=== PATIENT | female | born 1980 | race African-American/Black ===

== ENCOUNTER 2018-11-03 11:31 | Inpatient (IN) | payer MEDICAID, OTHER ==
[2018-11-03] MEDS: LACTATED RINGER'S 1,000 ML IV ×2 (12:01→20:54)
[2018-11-03] MEDS: MAGNESIUM SULFATE 4 GM/100 ML 100 ML IV (12:10)
[2018-11-03] MEDS: BETAMET NA PHOS/AC(6 MG/ML) 2 ML INJ SYG IM (12:18)
[2018-11-03] MEDS: MAGNESIUM SULFATE 20 GM/500 ML 500 ML IV (12:41)
[2018-11-03 13:30] LABS: ADD MAN DIFF? NO
[2018-11-03] MEDS ORDERED: BUTORPHANOL 1 MG INJ IV (13:30)
[2018-11-03 13:31] LABS: BASOPHIL # 0.1 10^3/ul (0.0-0.1); BASOPHILS % 0.4 % (0.0-2.0); EOSINOPHILS % 0.1 % (0.0-7.0); HEMATOCRIT 33.8 % (37.0-47.0); HEMOGLOBIN 11.6 g/dl (12.0-16.0); LYMPHOCYTES # 2.8 10^3/ul (0.8-2.9); LYMPHOCYTES % 20.1 % (15.0-51.0); MEAN CORPUSCULAR HEMOGLOBIN 29.9 pg (29.0-33.0); MEAN CORPUSCULAR HGB CONC 34.3 g/dl (32.0-37.0); MEAN CORPUSCULAR VOLUME 87.1 fl (82.0-101.0); MEAN PLATELET VOLUME 11.8 fl (7.4-10.4); MONOCYTES % 7.2 % (0.0-11.0); NEUTROPHIL # 10.1 10^3/ul (1.6-7.5); NEUTROPHILS % 71.6 % (39.0-77.0); PLATELET COUNT 262 10^3/UL (140-415); RED BLOOD COUNT 3.88 10^6/ul (4.20-5.40); RED CELL DISTRIBUTION WIDTH 13.5 % (11.5-14.5)
[2018-11-03 13:31] LABS: WHITE BLOOD COUNT 14.1 10^3/ul (4.8-10.8)
[2018-11-03 13:35] LABS: INR 0.86; PROTIME 11.8 Sec (11.9-14.9); PT RATIO 0.9
[2018-11-03 13:43] LABS: ALANINE AMINOTRANSFERASE 12 IU/L (13-69); ALBUMIN 2.9 g/dl (3.3-4.9); ALBUMIN/GLOBULIN RATIO 0.85; ALKALINE PHOSPHATASE 136 IU/L (42-121); ANION GAP 9 (5-13); ASPARTATE AMINO TRANSFERASE 15 IU/L (15-46); BILIRUBIN,INDIRECT 0.3 mg/dl (0-1.1); BILIRUBIN,TOTAL 0.3 mg/dl (0.2-1.3); BLOOD UREA NITROGEN 3 mg/dl (7-20); CALCIUM 9.1 mg/dl (8.4-10.2); CARBON DIOXIDE 19 mmol/L (21-31); CHLORIDE 109 mmol/L (97-110); CREATININE 0.53 mg/dl (0.44-1.00); Estimated GFR > 60 mL/min (>60); GLUCOSE 75 mg/dl (70-220); SODIUM 137 mmol/L (135-144); TOTAL PROTEIN 6.3 g/dl (6.1-8.1)
[2018-11-03] MEDS: BUTORPHANOL 2 MG INJ IV ×2 (14:11→19:03)
[2018-11-03] MEDS ORDERED: GLUCOSE GEL 15 GRAM TUBE PO ×2 (14:30)
[2018-11-03] MEDS ORDERED: GLUCAGON 1 MG INJ IM (14:30)
[2018-11-03] MEDS ORDERED: DEXTROSE 50% 50 ML SYRINGE IV ×2 (14:30)
[2018-11-03] MEDS ORDERED: GLUCOSE GEL 15 GRAM TUBE BUCCAL (14:30)
[2018-11-03] MEDS: AMPICILLIN 2 GM/NS (PMX) 100 ML IV (15:20)
[2018-11-03 16:24] LABS: ADD UMIC YES; UR ASCORBIC ACID NEGATIVE (NEGATIVE); UR BACTERIA FEW /HPF (NONE SEEN); UR BILIRUBIN (Dip) NEGATIVE (NEGATIVE); UR BLOOD (Dip) 3+ mg/dL (NEGATIVE); UR CLARITY CLEAR (CLEAR); UR COLOR YELLOW (YELLOW); UR GLUCOSE (Dip) NEGATIVE (NEGATIVE); UR KETONES (Dip) 2+ mg/dL (NEGATIVE); UR LEUKOCYTE ESTERASE (Dip) 1+ Leu/ul (NEGATIVE); UR NITRITE (Dip) NEGATIVE (NEGATIVE); UR RBC 70 /HPF (0-5); UR SPECIFIC GRAVITY (Dip) 1.012 (1.003-1.030); UR SQUAMOUS EPITHELIAL CELL FEW /HPF (FEW); UR TOTAL PROTEIN (Dip) NEGATIVE (NEGATIVE); UR UROBILINOGEN (Dip) NEGATIVE (NEGATIVE); UR WBC 35 /HPF (0-5)
[2018-11-03] MEDS: ACETAMINOPHEN 325 MG TAB PO (16:37)
[2018-11-03 16:40] LABS: AMPHETAMINE/METHAMPHETAMINE Negative (NEGATIVE); BARBITURATES Negative (NEGATIVE); BENZODIAZEPINES Negative (NEGATIVE); CANNABINOIDS Negative (NEGATIVE); COCAINE Negative (NEGATIVE); OPIATES Negative (NEGATIVE)
[2018-11-03] MEDS ORDERED: LACTATED RINGER'S 1,000 ML IV (16:54)
[2018-11-03] MEDS ORDERED: ACCU-CHEK XX (17:00)
[2018-11-03 18:02] LABS: ADD UMIC YES; UR ASCORBIC ACID NEGATIVE (NEGATIVE); UR BILIRUBIN (Dip) NEGATIVE (NEGATIVE); UR BLOOD (Dip) 2+ mg/dL (NEGATIVE); UR CLARITY SLIGHTLY CLOUDY (CLEAR); UR COLOR YELLOW (YELLOW); UR GLUCOSE (Dip) NEGATIVE (NEGATIVE); UR KETONES (Dip) 2+ mg/dL (NEGATIVE); UR LEUKOCYTE ESTERASE (Dip) TRACE Leu/ul (NEGATIVE); UR NITRITE (Dip) NEGATIVE (NEGATIVE); UR RBC 20 /HPF (0-5); UR SPECIFIC GRAVITY (Dip) 1.012 (1.003-1.030); UR SQUAMOUS EPITHELIAL CELL FEW /HPF (FEW); UR TOTAL PROTEIN (Dip) NEGATIVE (NEGATIVE); UR UROBILINOGEN (Dip) NEGATIVE (NEGATIVE); UR WBC 14 /HPF (0-5)
[2018-11-03 18:46] LABS: MAGNESIUM 4.9 mg/dl (1.7-2.5)
[2018-11-03] MEDS: DEXTROSE 5%-LR 1,000 ML IV (19:11)
[2018-11-03] MEDS: AMPICILLIN 1 GM/NS (PMX) 50 ML IV (20:06)
[2018-11-03] MEDS ORDERED: NALOXONE (0.4 MG/ML) INJ IV (20:30)
[2018-11-03] MEDS ORDERED: HYDROmorphONE 0.5 MG/0.5 ML SYG IV ×2 (20:30)
[2018-11-03] MEDS ORDERED: DIPHENHYDRAMINE 50 MG INJ IV (20:30)
[2018-11-03] MEDS ORDERED: ZOLPIDEM 5 MG TAB PO (20:30)
[2018-11-03] MEDS ORDERED: ONDANSETRON 4 MG INJ IV (20:30)
[2018-11-03 22:17] LABS: RAPID PLASMA REAGIN NONREACTIVE (NR)
[2018-11-03] MEDS: FENTAnyl 2MCG/ML-ROPIV 0.2% 100 ML BAG EPI (23:51)
[2018-11-04] MEDS: AMPICILLIN 1 GM/NS (PMX) 50 ML IV ×6 (00:26→20:33)
[2018-11-04] MEDS: BETAMET NA PHOS/AC(6 MG/ML) 2 ML INJ SYG IM (00:26)
[2018-11-04] MEDS: FENTAnyl 2MCG/ML-ROPIV 0.2% 100 ML BAG EPI ×3 (04:10→19:32)
[2018-11-04] MEDS: ACCU-CHEK XX ×4 (06:00→19:35)
[2018-11-04] MEDS: LACTATED RINGER'S 1,000 ML IV (06:30)
[2018-11-04] MEDS ORDERED: BETAMET NA PHOS/AC(6 MG/ML) 2 ML INJ SYG IM (09:00)
[2018-11-04] MEDS: DEXTROSE 5%-LR 1,000 ML IV (11:30)
[2018-11-04] MEDS: AZITHROMYCIN 500MG/NS (PMX) 250 ML IVPB (14:12)
[2018-11-04] MEDS: MAGNESIUM SULFATE 20 GM/500 ML 500 ML IV (18:12)
[2018-11-04] MEDS ORDERED: OXYTOCIN 30 UNITS/LR 500 ML IV (20:00)
[2018-11-04] MEDS ORDERED: LIDOCAINE 1% (MPF) 30 ML INJ INJ (21:00)
[2018-11-04 22:27] LABS: CBV Base Excess -11.2 mmol/L; CBV COHb 1.2 %; CBV Oxygen Sat 78.2 mmHG; CBV Total Hemglobin 15.9 g/dl; Cord Blood Venous pO2 34.2 mmHG (15.0-45.0); Fraction OxyHgb Cord Venous 76.6 %; MODE ROOM AIR; MetHgb Cord Venous 0.9 %; Sample Type CBV; Site CORD
[2018-11-04 22:28] LABS: AADO2 Cord Arterial 68.2 mmHg; Arterial Cord Blood pCO2 51.5 mmHG (25-50); CBA Base Excess -12.1 mmol/L; CBA COHb 0.6 %; CBA Oxygen Sat 41.5 mmHG; CBA Total Hemglobin 15.6 g/dl; Cord Blood Arterial pO2 19.9 mmHG (15.0-45.0); Fraction OxyHgb Cord Arterial 40.5 %; MODE ROOM AIR; MetHgb Cord Arterial 1.7 %; Sample Type CBA; Site CORD
[2018-11-04] MEDS: OXYTOCIN 30 UNITS/LR 500 ML IV ×2 (22:29→22:30)
[2018-11-04] MEDS: MINERAL OIL LIGHT 10 ML VIAL TOP (22:31)
[2018-11-04] MEDS: KETOROLAC 30 MG INJ IV (22:43)
[2018-11-05] MEDS: MAGNESIUM SULFATE 4 GM/100 ML 100 ML IV (00:39)
[2018-11-05] MEDS: MAGNESIUM SULFATE 20 GM/500 ML 500 ML IV ×2 (01:07→11:50)
[2018-11-05 01:10] LABS: ADD MAN DIFF? NO
[2018-11-05 01:11] LABS: WHITE BLOOD COUNT 22.6 10^3/ul (4.8-10.8)
[2018-11-05 01:11] LABS: ABNORMAL IP MESSAGE 1; BASOPHIL # 0.1 10^3/ul (0.0-0.1); BASOPHILS % 0.3 % (0.0-2.0); HEMOGLOBIN 10.2 g/dl (12.0-16.0); LYMPHOCYTES # 1.7 10^3/ul (0.8-2.9); LYMPHOCYTES % 7.3 % (15.0-51.0); MEAN CORPUSCULAR HGB CONC 32.9 g/dl (32.0-37.0); MEAN CORPUSCULAR VOLUME 91.2 fl (82.0-101.0); MEAN PLATELET VOLUME 10.8 fl (7.4-10.4); MONOCYTES % 8.9 % (0.0-11.0); NEUTROPHIL # 18.6 10^3/ul (1.6-7.5); PLATELET COUNT 244 10^3/UL (140-415)
[2018-11-05 01:20] LABS: POSITIVE DIFF @See below
[2018-11-05 01:29] LABS: ALANINE AMINOTRANSFERASE 10 IU/L (13-69); ALBUMIN 2.7 g/dl (3.3-4.9); ALBUMIN/GLOBULIN RATIO 0.81; ALKALINE PHOSPHATASE 116 IU/L (42-121); ANION GAP 14 (5-13); ASPARTATE AMINO TRANSFERASE 20 IU/L (15-46); BILIRUBIN,INDIRECT 0.2 mg/dl (0-1.1); BILIRUBIN,TOTAL 0.2 mg/dl (0.2-1.3); BLOOD UREA NITROGEN 8 mg/dl (7-20); CALCIUM 8.8 mg/dl (8.4-10.2); CARBON DIOXIDE 19 mmol/L (21-31); CHLORIDE 102 mmol/L (97-110); CREATININE 0.79 mg/dl (0.44-1.00); Estimated GFR > 60 mL/min (>60); GLUCOSE 124 mg/dl (70-220); POTASSIUM 4.2 mmol/L (3.5-5.1); SODIUM 135 mmol/L (135-144); URIC ACID 7.4 mg/dl (3.1-7.9)
[2018-11-05] MEDS: LACTATED RINGER'S 1,000 ML IV* ×3 (02:17→17:35)
[2018-11-05] MEDS ORDERED: SENNA/DOCUSATE NA (8.6MG/50MG) TAB PO (02:30)
[2018-11-05] MEDS ORDERED: CARBOPROST 250 MCG INJ IM (02:30)
[2018-11-05] MEDS ORDERED: MAGNESIUM HYDROXIDE 30ML CUP PO (02:30)
[2018-11-05] MEDS ORDERED: ONDANSETRON 4 MG INJ IV (02:30)
[2018-11-05] MEDS ORDERED: NA PHOSPHATE/BIPHOS 133 ML ENEMA PR (02:30)
[2018-11-05] MEDS ORDERED: DIPHENHYDRAMINE 50 MG INJ IV (02:30)
[2018-11-05] MEDS ORDERED: ONDANSETRON 4 MG TAB PO (02:30)
[2018-11-05] MEDS ORDERED: HYDROCODONE/APAP (5/325) TAB PO (02:30)
[2018-11-05] MEDS ORDERED: DIPHENHYDRAMINE 25 MG CAP PO (02:30)
[2018-11-05] MEDS ORDERED: OXYTOCIN 30 UNITS/LR 500 ML IV (02:30)
[2018-11-05] MEDS ORDERED: MISOPROSTOL 200 MCG TAB PR (02:30)
[2018-11-05] MEDS: WITCH HAZEL/GLYCERIN PAD PR (05:47)
[2018-11-05] MEDS: BENZOCAINE 20% 56 ML SPRAY TOP (05:47)
[2018-11-05] MEDS: IBUPROFEN 600 MG TAB PO ×4 (05:47→23:34)
[2018-11-05] MEDS: ACCU-CHEK XX ×4 (07:30→19:05)
[2018-11-05 08:38] LABS: ADD MAN DIFF? NO
[2018-11-05 08:44] LABS: WHITE BLOOD COUNT 20.1 10^3/ul (4.8-10.8)
[2018-11-05 08:44] LABS: ABNORMAL IP MESSAGE 1; BASOPHILS % 0.1 % (0.0-2.0); HEMATOCRIT 30.3 % (37.0-47.0); HEMOGLOBIN 9.9 g/dl (12.0-16.0); LYMPHOCYTES % 9.7 % (15.0-51.0); MEAN CORPUSCULAR HEMOGLOBIN 29.3 pg (29.0-33.0); MEAN CORPUSCULAR HGB CONC 32.7 g/dl (32.0-37.0); MEAN CORPUSCULAR VOLUME 89.6 fl (82.0-101.0); MEAN PLATELET VOLUME 11.2 fl (7.4-10.4); MONOCYTE # 2.3 10^3/ul (0.3-0.9); MONOCYTES % 11.2 % (0.0-11.0); NEUTROPHIL # 15.7 10^3/ul (1.6-7.5); PLATELET COUNT 234 10^3/UL (140-415); RED BLOOD COUNT 3.38 10^6/ul (4.20-5.40); RED CELL DISTRIBUTION WIDTH 14.1 % (11.5-14.5)
[2018-11-05 08:47] LABS: POSITIVE DIFF @See below
[2018-11-05] MEDS: SENNA/DOCUSATE NA (8.6MG/50MG) TAB PO ×2 (09:02→21:02)
[2018-11-05 09:30] LABS: MAGNESIUM 5.9 mg/dl (1.7-2.5)
[2018-11-05 12:40] LABS: MAGNESIUM 5.7 mg/dl (1.7-2.5)
[2018-11-05 12:47] LABS: ADD UMIC YES; UR ASCORBIC ACID NEGATIVE (NEGATIVE); UR BACTERIA FEW /HPF (NONE SEEN); UR BILIRUBIN (Dip) NEGATIVE (NEGATIVE); UR BLOOD (Dip) 3+ mg/dL (NEGATIVE); UR CLARITY CLEAR (CLEAR); UR COLOR YELLOW (YELLOW); UR GLUCOSE (Dip) NEGATIVE (NEGATIVE); UR KETONES (Dip) TRACE mg/dL (NEGATIVE); UR LEUKOCYTE ESTERASE (Dip) 1+ Leu/ul (NEGATIVE); UR NITRITE (Dip) NEGATIVE (NEGATIVE); UR RBC 168 /HPF (0-5); UR SPECIFIC GRAVITY (Dip) 1.011 (1.003-1.030); UR TOTAL PROTEIN (Dip) NEGATIVE (NEGATIVE); UR UROBILINOGEN (Dip) NEGATIVE (NEGATIVE); UR WBC 24 /HPF (0-5)
[2018-11-05 19:26] LABS: MAGNESIUM 6.2 mg/dl (1.7-2.5)
[2018-11-05] MEDS: HYDROCODONE/APAP (5/325) TAB PO (21:03)
[2018-11-06] MEDS: IBUPROFEN 600 MG TAB PO ×3 (05:13→17:42)
[2018-11-06] MEDS: SENNA/DOCUSATE NA (8.6MG/50MG) TAB PO (08:52)
[2018-11-06] MEDS: HYDROCODONE/APAP (5/325) TAB PO (08:53)
[2018-11-06] MEDS: VARICELLA VACCINE LIVE/PF 1,350 UNIT/0.5 ML ML SC* (09:00)
[2018-11-06] MEDS: MEASLES,MUMPS,RUBELLA VACCINE INJ SC* (09:00)
[2018-11-06] MEDS: DIPHTH/TET/ACEL PERTUSS (ADULT) 0.5 ML VIAL IM* (09:00)
[2018-11-06] MEDS: LANOLIN HPA 1 PKT TOP (17:41)
[2018-11-06] MEDS: DIBUCAINE 1% 30 GM OINT TOP (17:41)
[2018-11-06] MEDS: BENZOCAINE 20% 56 ML SPRAY TOP (17:41)
[2018-11-06] MEDS: WITCH HAZEL/GLYCERIN PAD PR (17:41)
== END 2018-11-06 19:09 | disposition home or self-care (01) | DRG 805 ==
LOC: OBT 11:31 → L-D 11-04 09:17 → PP1 11-05 01:56 → L-D 11-04 14:51 → OBT 11:33 → L-D 11:33
PROC: 10E0XZZ Delivery of Products of Conception, External Approach (ICD-10-PCS; principal; 2018-11-04)
PROC: 0HQ9XZZ Repair Perineum Skin, External Approach (ICD-10-PCS; 2018-11-04)
DX: O24.420 Gestational diabetes mellitus in childbirth, diet controlled (principal); O60.14X0 Preterm labor third trimester with preterm delivery third trimester, not applicable or unspecified; Z37.0 Single live birth; O69.81X0 Labor and delivery complicated by cord around neck, without compression, not applicable or unspecified; O70.0 First degree perineal laceration during delivery; Z3A.33 33 weeks gestation of pregnancy
CPT/HCPCS: 36415; 36600; 62319; 76815; 76817; 76818; 80053; 80307; 81001; 82803; 82962; 83735; 84560; 85025; 85610; 85730; 86592; 86900; 86901; 87086; 88307; 90716; 99464

== ENCOUNTER 2018-11-08 02:13 | Inpatient (IN) | payer SELFPAY, MEDICAID ==
[2018-11-08] MEDS: FUROSEMIDE 40 MG INJ IV ×2 (03:12→17:37)
[2018-11-08] MEDS: ASPIRIN 81 MG TAB PO (03:12)
[2018-11-08 03:15] LABS: ADD MAN DIFF? NO
[2018-11-08 03:17] LABS: BASOPHIL # 0.1 10^3/ul (0.0-0.1); BASOPHILS % 0.4 % (0.0-2.0); EOSINOPHILS # 0.3 10^3/ul (0.0-0.5); EOSINOPHILS % 2.3 % (0.0-7.0); HEMATOCRIT 32.4 % (37.0-47.0); HEMOGLOBIN 10.9 g/dl (12.0-16.0); LYMPHOCYTES # 3.7 10^3/ul (0.8-2.9); LYMPHOCYTES % 31.6 % (15.0-51.0); MEAN CORPUSCULAR HEMOGLOBIN 29.6 pg (29.0-33.0); MEAN CORPUSCULAR HGB CONC 33.6 g/dl (32.0-37.0); MEAN PLATELET VOLUME 10.6 fl (7.4-10.4); MONOCYTE # 0.8 10^3/ul (0.3-0.9); MONOCYTES % 7.1 % (0.0-11.0); NEUTROPHIL # 6.7 10^3/ul (1.6-7.5); NEUTROPHILS % 57.6 % (39.0-77.0); PLATELET COUNT 274 10^3/UL (140-415); RED BLOOD COUNT 3.68 10^6/ul (4.20-5.40); RED CELL DISTRIBUTION WIDTH 13.5 % (11.5-14.5)
[2018-11-08 03:17] LABS: WHITE BLOOD COUNT 11.6 10^3/ul (4.8-10.8)
[2018-11-08 03:45] LABS: ALANINE AMINOTRANSFERASE 19 IU/L (13-69); ALBUMIN 3.1 g/dl (3.3-4.9); ALBUMIN/GLOBULIN RATIO 0.91; ALKALINE PHOSPHATASE 94 IU/L (42-121); ANION GAP 8 (5-13); ASPARTATE AMINO TRANSFERASE 25 IU/L (15-46); BILIRUBIN,INDIRECT 0.2 mg/dl (0-1.1); BILIRUBIN,TOTAL 0.2 mg/dl (0.2-1.3); BLOOD UREA NITROGEN 9 mg/dl (7-20); CALCIUM 9.3 mg/dl (8.4-10.2); CARBON DIOXIDE 23 mmol/L (21-31); CHLORIDE 108 mmol/L (97-110); CREATININE 0.47 mg/dl (0.44-1.00); Estimated GFR > 60 mL/min (>60); GLUCOSE 91 mg/dl (70-220); LIPASE 225 U/L (23-300); POTASSIUM 4.2 mmol/L (3.5-5.1); SODIUM 139 mmol/L (135-144); TOTAL PROTEIN 6.5 g/dl (6.1-8.1)
[2018-11-08 03:49] LABS: ADD UMIC YES; UR ASCORBIC ACID NEGATIVE (NEGATIVE); UR BACTERIA FEW /HPF (NONE SEEN); UR BILIRUBIN (Dip) NEGATIVE (NEGATIVE); UR BLOOD (Dip) 3+ mg/dL (NEGATIVE); UR CLARITY SLIGHTLY CLOUDY (CLEAR); UR COLOR YELLOW (YELLOW); UR GLUCOSE (Dip) NEGATIVE (NEGATIVE); UR KETONES (Dip) NEGATIVE (NEGATIVE); UR LEUKOCYTE ESTERASE (Dip) 2+ Leu/ul (NEGATIVE); UR NITRITE (Dip) NEGATIVE (NEGATIVE); UR RBC 42 /HPF (0-5); UR SPECIFIC GRAVITY (Dip) 1.004 (1.003-1.030); UR SQUAMOUS EPITHELIAL CELL FEW /HPF (FEW); UR TOTAL PROTEIN (Dip) NEGATIVE (NEGATIVE); UR UROBILINOGEN (Dip) NEGATIVE (NEGATIVE); UR WBC 18 /HPF (0-5)
[2018-11-08 03:55] LABS: B-TYPE NATRIURETIC PEPTIDE 351 PG/ML (0-125); TROPONIN-I < 0.012 ng/ml (0.000-0.120)
[2018-11-08] MEDS ORDERED: CEFTRIAXONE 1 GM/50 ML (PMX) 50 ML IVPB ×2 (04:30)
[2018-11-08] MEDS ORDERED: ALBUTEROL/IPRATROPIUM (NEB) 3 ML AMP HHN (05:00)
[2018-11-08] MEDS ORDERED: ONDANSETRON 4 MG INJ IV (05:00)
[2018-11-08] MEDS ORDERED: NACL 0.9% 3 ML SYG IV (05:00)
[2018-11-08 05:41] LABS: CREATINE KINASE 30 IU/L (23-200)
[2018-11-08 05:51] LABS: CK INDEX 0.7; CK-MB < 0.22 ng/ml (0.0-2.4)
[2018-11-08 05:55] LABS: TROPONIN-I < 0.012 ng/ml (0.000-0.120)
[2018-11-08] MEDS: FUROSEMIDE 20 MG INJ IV (08:41)
[2018-11-08] MEDS: LISINOPRIL 10 MG TAB PO (08:43)
[2018-11-08] MEDS: HEPARIN 5,000 UNIT/1 ML VIAL SC ×2 (08:45→20:49)
[2018-11-08] MEDS: CEFTRIAXONE 1 GM/50 ML (PMX) 50 ML IVPB (09:43)
[2018-11-08 11:52] LABS: CREATINE KINASE 23 IU/L (23-200)
[2018-11-08 12:05] LABS: CK-MB < 0.22 ng/ml (0.0-2.4); TROPONIN-I < 0.012 ng/ml (0.000-0.120)
[2018-11-08] MEDS: ACETAMINOPHEN 325 MG TAB PO (21:57)
[2018-11-08] MEDS: HYDROCODONE/APAP (10/325) TAB PO (23:03)
[2018-11-09 06:08] LABS: ADD MAN DIFF? NO
[2018-11-09] MEDS: FUROSEMIDE 40 MG INJ IV ×2 (06:15→17:37)
[2018-11-09 06:19] LABS: BASOPHIL # 0.1 10^3/ul (0.0-0.1); BASOPHILS % 0.4 % (0.0-2.0); EOSINOPHILS # 0.2 10^3/ul (0.0-0.5); EOSINOPHILS % 2.1 % (0.0-7.0); HEMATOCRIT 35.6 % (37.0-47.0); HEMOGLOBIN 11.9 g/dl (12.0-16.0); LYMPHOCYTES # 3.7 10^3/ul (0.8-2.9); LYMPHOCYTES % 32.5 % (15.0-51.0); MEAN CORPUSCULAR HEMOGLOBIN 29.6 pg (29.0-33.0); MEAN CORPUSCULAR HGB CONC 33.4 g/dl (32.0-37.0); MEAN CORPUSCULAR VOLUME 88.6 fl (82.0-101.0); MEAN PLATELET VOLUME 10.5 fl (7.4-10.4); MONOCYTE # 0.9 10^3/ul (0.3-0.9); MONOCYTES % 7.4 % (0.0-11.0); NEUTROPHIL # 6.5 10^3/ul (1.6-7.5); NEUTROPHILS % 56.7 % (39.0-77.0); PLATELET COUNT 326 10^3/UL (140-415); RED BLOOD COUNT 4.02 10^6/ul (4.20-5.40); RED CELL DISTRIBUTION WIDTH 13.4 % (11.5-14.5)
[2018-11-09 06:19] LABS: WHITE BLOOD COUNT 11.5 10^3/ul (4.8-10.8)
[2018-11-09 06:30] LABS: HEMOGLOBIN A1C 5.2 % (0-5.9)
[2018-11-09 06:43] LABS: ALANINE AMINOTRANSFERASE 23 IU/L (13-69); ALBUMIN 3.4 g/dl (3.3-4.9); ALBUMIN/GLOBULIN RATIO 0.91; ALKALINE PHOSPHATASE 96 IU/L (42-121); ANION GAP 10 (5-13); ASPARTATE AMINO TRANSFERASE 27 IU/L (15-46); BILIRUBIN,INDIRECT 0.3 mg/dl (0-1.1); BILIRUBIN,TOTAL 0.3 mg/dl (0.2-1.3); BLOOD UREA NITROGEN 10 mg/dl (7-20); CALCIUM 9.1 mg/dl (8.4-10.2); CARBON DIOXIDE 30 mmol/L (21-31); CHLORIDE 98 mmol/L (97-110); CHOL/HDL RATIO 4.1 RATIO; CHOLESTEROL 201 mg/dl (100-200); CREATININE 0.54 mg/dl (0.44-1.00); Estimated GFR > 60 mL/min (>60); GLUCOSE 86 mg/dl (70-220); HDL CHOLESTEROL 48 mg/dl (34-82); LDL CHOLESTEROL,CALCULATED 106 mg/dl; MAGNESIUM 1.7 mg/dl (1.7-2.5); POTASSIUM 3.8 mmol/L (3.5-5.1); SODIUM 138 mmol/L (135-144); TOTAL PROTEIN 7.1 g/dl (6.1-8.1); TRIGLYCERIDES 233 mg/dl (0-149)
[2018-11-09] MEDS: LISINOPRIL 10 MG TAB PO (08:25)
[2018-11-09] MEDS: CEFTRIAXONE 1 GM/50 ML (PMX) 50 ML IVPB (08:25)
[2018-11-09] MEDS: HEPARIN 5,000 UNIT/1 ML VIAL SC (08:31)
[2018-11-09] MEDS: MAGNESIUM OXIDE 400 MG TAB PO (19:59)
== END 2018-11-09 20:58 | disposition home or self-care (01) | DRG 776 ==
LOC: E/R 02:13 → 6WM 03:21
DX: O90.89 Other complications of the puerperium, not elsewhere classified (principal); Z68.41 Body mass index [BMI] 40.0-44.9, adult; O86.20 Urinary tract infection following delivery, unspecified; O99.215 Obesity complicating the puerperium; E66.01 Morbid (severe) obesity due to excess calories; E87.70 Fluid overload, unspecified
CPT/HCPCS: 36415; 71045; 80053; 80061; 81001; 82550; 82553; 83036; 83690; 83735; 83880; 84443; 84484; 85025; 87086; 93005; 93306; 96374; 99285-25

== ENCOUNTER 2018-12-30 21:04 | Emergency (ER) | payer OTHER, MEDICAID | END 2018-12-30 22:12 | disposition home or self-care (01) | LOC: FTE 22:12 | DX: M79.604 Pain in right leg (principal); J45.909 Unspecified asthma, uncomplicated; Z91.040 Latex allergy status | CPT/HCPCS: 93971; 99284-25 ==

== ENCOUNTER 2019-02-05 20:11 | Emergency (ER) | payer OTHER ==
[2019-02-05 21:43] LABS: ADD MAN DIFF? NO
[2019-02-05 21:44] LABS: BASOPHILS % 0.4 % (0.0-2.0); EOSINOPHILS # 0.1 10^3/ul (0.0-0.5); EOSINOPHILS % 1.2 % (0.0-7.0); HEMATOCRIT 33.2 % (37.0-47.0); HEMOGLOBIN 10.8 g/dl (12.0-16.0); LYMPHOCYTES # 3.3 10^3/ul (0.8-2.9); LYMPHOCYTES % 33.8 % (15.0-51.0); MEAN CORPUSCULAR HEMOGLOBIN 28.3 pg (29.0-33.0); MEAN CORPUSCULAR HGB CONC 32.5 g/dl (32.0-37.0); MEAN CORPUSCULAR VOLUME 87.1 fl (82.0-101.0); MEAN PLATELET VOLUME 10.1 fl (7.4-10.4); MONOCYTE # 0.7 10^3/ul (0.3-0.9); MONOCYTES % 7.2 % (0.0-11.0); NEUTROPHIL # 5.5 10^3/ul (1.6-7.5); NEUTROPHILS % 56.9 % (39.0-77.0); PLATELET COUNT 254 10^3/UL (140-415); RED BLOOD COUNT 3.81 10^6/ul (4.20-5.40); RED CELL DISTRIBUTION WIDTH 13.6 % (11.5-14.5)
[2019-02-05 21:44] LABS: WHITE BLOOD COUNT 9.6 10^3/ul (4.8-10.8)
[2019-02-05 22:04] LABS: ANION GAP 7 (5-13); BLOOD UREA NITROGEN 10 mg/dl (7-20); CARBON DIOXIDE 27 mmol/L (21-31); CHLORIDE 106 mmol/L (97-110); CREATININE 0.72 mg/dl (0.44-1.00); Estimated GFR > 60 mL/min (>60); GLUCOSE 105 mg/dl (70-220); POTASSIUM 4.3 mmol/L (3.5-5.1); SODIUM 140 mmol/L (135-144)
[2019-02-05 22:17] LABS: D-DIMER 379.07 ng/ml (<460)
[2019-02-06 00:10] LABS: TROPONIN-I < 0.012 ng/ml (0.000-0.120)
== END 2019-02-06 00:49 | disposition home or self-care (01) ==
LOC: E/R 02-06 00:49
DX: R00.2 Palpitations (principal); R07.89 Other chest pain; D64.9 Anemia, unspecified; R40.2142 Coma scale, eyes open, spontaneous, at arrival to emergency department; R40.2362 Coma scale, best motor response, obeys commands, at arrival to emergency department; R40.2252 Coma scale, best verbal response, oriented, at arrival to emergency department; J45.909 Unspecified asthma, uncomplicated
CPT/HCPCS: 71045; 80048; 84484; 85025; 85378; 93005; 99285-25